=== PATIENT | male | born 1955 | race Caucasian/White ===

== ENCOUNTER → 2021-06-18 | Outpatient (CLI) | payer MEDICARE, OTHER | END | disposition home or self-care (01) | LOC: RAH 10:50 | PROVIDERS: ATTEND Neurological Surgery | DX: M47.817 Spondylosis without myelopathy or radiculopathy, lumbosacral region (principal); M48.07 Spinal stenosis, lumbosacral region; Z90.49 Acquired absence of other specified parts of digestive tract | CPT/HCPCS: 72114 ==

== ENCOUNTER → 2022-11-25 | Outpatient (CLI) | payer MEDICARE, OTHER | END | disposition home or self-care (01) | LOC: RAH 16:13 | PROVIDERS: ATTEND Family Medicine Sports Medicine | DX: M47.26 Other spondylosis with radiculopathy, lumbar region (principal); M54.50 Low back pain, unspecified; M43.16 Spondylolisthesis, lumbar region | CPT/HCPCS: 72148 ==

== ENCOUNTER → 2022-12-30 | Outpatient (CLI) | payer MEDICARE, OTHER ==
[2022-12-30 14:13] LABS: BASOPHILS # (AUTO) 0.07 K/uL (0.00-0.20); BASOPHILS % (AUTO) 1.1 % (0.0-5.0); EOSINOPHILS # (AUTO) 0.18 K/uL (0.00-0.70); EOSINOPHILS % (AUTO) 2.9 % (0.0-8.0); HEMATOCRIT 44.1 % (42-54); IMMATURE GRANULOCYTE ABSOLUTE 0.02 K/uL (0-1); LYMPHOCYTES % (AUTO) 32.5 % (21.0-51.0); MEAN CORPUSCULAR HEMOGLOBIN 32.7 pg (27.0-33.0); MEAN CORPUSCULAR HGB CONC 35.1 g/dL (32.0-36.0); MONOCYTES # (AUTO) 0.5 K/uL (0.1-1.0); MONOCYTES % (AUTO) 8.8 % (3.0-13.0); NEUTROPHILS # (AUTO) 3.3 K/uL (1.8-7.7); NEUTROPHILS % (AUTO) 54.4 % (40.0-77.0); PLATELET COUNT (AUTO) 304 K/uL (130-400); RED BLOOD CELL COUNT(AUTO) 4.74 MIL/uL (4.50-6.20); RED CELL DISTRIBUTION WIDTH 12.9 % (11.0-15.5); WHITE BLOOD COUNT (AUTO) 6.1 K/uL (4.8-10.8)
[2022-12-30 14:20] LABS: CREATININE 1.3 mg/dL (0.5-1.5); POTASSIUM 3.8 mmol/L (3.5-5.1)
== END | disposition home or self-care (01) ==
LOC: LAB 13:44
PROVIDERS: ATTEND Urology
DX: R10.9 Unspecified abdominal pain (principal)
CPT/HCPCS: 36415; 80048; 85025

== ENCOUNTER → 2023-01-07 | Outpatient (CLI) | payer MEDICARE, OTHER ==
[~2023-01-07] MED LIST: IOHEXOL 350 MG/ML 100ML INFUS..BTL IV ONE; IOHEXOL-350 75 ML VIAL IV ONE
== END | disposition home or self-care (01) ==
LOC: RAH 08:20
PROVIDERS: ATTEND Urology
DX: K40.90 Unilateral inguinal hernia, without obstruction or gangrene, not specified as recurrent (principal); M43.17 Spondylolisthesis, lumbosacral region; R10.9 Unspecified abdominal pain; K76.89 Other specified diseases of liver; Z90.49 Acquired absence of other specified parts of digestive tract
CPT/HCPCS: 74178; Q9967

== ENCOUNTER → 2024-09-02 | Outpatient (CLI) | payer MEDICARE, OTHER ==
[~2024-09-02] MED LIST changes: -IOHEXOL-350 75 ML VIAL IV ONE
--- NOTE | 2024-09-15 10:20 | CARDIOLOGY ---
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 A dedicated, limited window, coronary imaging protocol was used, with single breath-hold, retrospective ECG gating, and automated arrhythmia rejection. 100 cc of low osmolar contrast agent: Omnipaque 350 was delivered via a 18-gauge IV catheter in the right antecubital fossa, using a power injector and followed by 60 cc of normal saline bolus as a chaser. Collimated images were reformatted at 0.5 mm intervals, and sent to an offline independent workstation for interpretation, using 3D anatomic reconstructions: Curved multiplanar reconstructions, maximum intensity projections, and multiplanar imaging. No metoprolol was administered prior to scanning due to low baseline heart rate. 0.8 mg SL nitroglycerin was given. CORONARY ARTERY DESCRIPTIONS: The coronary arteries arise in normal position. Left main coronary artery: Normal caliber vessel that bifurcates into the LAD and LCx. No stenosis. Left anterior descending coronary artery: Normal caliber vessel and gives rise to diagonal and septal branches. There is mixed calcified and noncalcified plaque in the proximal LAD with 20-30% stenosis. Left circumflex coronary artery: Normal caliber, nondominant and gives rise to two OM branches. There is mixed calcified and noncalcified plaque in the proximal LCx with 40-50% stenosis. Right coronary artery: Large, dominant vessel giving rise to the PL and PDA branches. There is mixed calcified and noncalcified plaque in the proximal RCA with 50-60% stenosis. CAD-RADs: 3, moderate stenosis. Recommend FFR. Thoracic Aorta: Normal diameter. Rosa Rangel MD Cardiovascular Disease [facility] ROSA RANGEL MD Sep 15, 2024 10:20
== END | disposition home or self-care (01) ==
LOC: RAH 09:12
PROVIDERS: ATTEND Internal Medicine Cardiovascular Disease
DX: I25.10 Atherosclerotic heart disease of native coronary artery without angina pectoris (principal); R06.2 Wheezing
CPT/HCPCS: 75574; Q9967

== ENCOUNTER → 2024-09-15 | Outpatient (CLI) | payer MEDICARE, OTHER | END | disposition home or self-care (01) | LOC: RAH 11:50 | PROVIDERS: ATTEND Internal Medicine Cardiovascular Disease | DX: I25.10 Atherosclerotic heart disease of native coronary artery without angina pectoris (principal); R06.02 Shortness of breath | CPT/HCPCS: 75580 ==

== ENCOUNTER 2025-01-11 14:30 | Emergency (ER) | payer MEDICARE, OTHER ==
[~2025-01-11] VITALS: Ht 180.3 cm; Wt 108.9 kg
--- NOTE | 2025-01-11 14:41 | ERN ---
ED Note History of Present Illness Stated Complaint: ALLERGIC REACTION Chief Complaint: Allergic Reaction Time Seen by MD: 14:32 Dictation: PATIENT IS A 69-YEAR-OLD MALE COMING IN FROM A LOCAL PRIMARY CARE DOCTOR'S OFFICE WITH COMPLAINTS OF HAVING AN URTICARIAL RASH THAT IS ITCHY ONSET WAS YESTERDAY MORNING. HE IS HAVING NO SHORTNESS A BREATH NO ANGIOEDEMA, VOICE IS CLEAR. HE STATES HE AND HIS HAS BEEN THINKING ABOUT THEIR HOME THERE FOOD ETC. AND THERE ARE NO NEW SOAPS DETERGENT CLOSED. PATIENT WAS TRANSPORTED TO [facility] FOR FURTHER EVALUATION AND TREATMENT PATIENT WAS BENADRYL 50 MG AND EPI 0.2. NO ANGIOEDEMA ON TRIAGE, VOICE IS CLEAR Allergies: Coded Allergies: No Known Drug Allergies (Unverified Allergy, Unknown, 01/11/25) Past Medical History RN Note Reviewed/Agreed w/PFSH: Yes Review of System Dictation CONSTITUTIONAL: NEGATIVE EXCEPT FOR HPI HEAD/FACE: NEGATIVE EXCEPT FOR HPI EENT: NEGATIVE EXCEPT FOR HPI RESPIRATORY: NEGATIVE EXCEPT FOR HPI GASTROINTESTINAL/ABDOMINAL: NEGATIVE EXCEPT FOR HPI GENITOURINARY: NEGATIVE EXCEPT FOR HPI MUSCULOSKELETAL: NEGATIVE EXCEPT FOR HPI INTEGUMENTARY: NEGATIVE EXCEPT FOR HPI PRURITIC RASH NEUROLOGICAL/PSYCH: NEGATIVE EXCEPT FOR HPI HEMATOLOGIC/LYMPHATIC: NEGATIVE EXCEPT FOR HPI ALL SYSTEMS NEGATIVE, EXCEPT NOTED ABOVE. 13 POINT REVIEW OF SYSTEMS ASSESSED AND ALL NEGATIVE EXCEPT FOR ABOVE. Initial Vital Sign VS Vital Signs Date Time Temp Pulse Resp B/P (MAP) Pulse Ox O2 Delivery O2 Flow Rate FiO2 01/11/25 14:59 97.5 76 16 132/72 98 Room Air 0 01/11/25 15:43 21 Physical Exam Dictation VITAL SIGNS REVIEWED GENERAL APPEARANCE: ALERT, ORIENTED X 3, MILD ACUTE DISTRESS, WELL DEVELOPED, NOURISHED. HEAD AND FACE: NON-TRAUMATIC. EYES: PERRL, PINK CONJUNCTIVAS, EYELID NO TRAUMA, ANTERIOR CHAMBER WITH ARCUS SENILIS. EARS: PINNAS INTACT AND NO SIGNS OF TRAUMA OR ERYTHEMA EAR CANALS CLEAR AND NO DISCHARGE TM NO ERYTHEMA NOSE: NO DISCHARGE, NO BLEEDING. OROPHARYNX: MOUTH NORMAL, TONGUE PINK, NO ANGIOEDEMA, VOICE IS CLEAR PHARYNX CLEAR,NO ERYTHEMA, TONSILS NO EXUDATES, NO ABSCESSES NOTED, MUCOUS MEMBRANE MOIST NECK: SUPPLE, NON-TENDER, NO THYROMEGALY, NO MASSES, NO JVD, NO BRUITS BREAST:DEFERRED CHEST:NO TENDERNESS, NO CREPITUS, NO PARADOXICAL MOVEMENT, NO RETRACTIONS LUNGS:CLEAR, WELL-VENTILATED, SYMMETRIC, NO RALES, NO WHEEZING, NO RHONCHI, NO STRIDOR, GOOD BREATH SOUNDS BILATERALLY HEART: REGULAR RATE, REGULAR RHYTHM, NO MURMUR, NO GALLOPS VASCULAR: NO PERIPHERAL EDEMA, ABDOMEN: SOFT, POSITIVE BOWEL SOUNDS, NONDISTENDED, NO GUARDING, NONTENDER, NO REBOUND, NO MASSES NO HEPATOMEGALY, NO SPLENOMEGALY, NO GONZALES'S SIGN, NO HERNIAS. RECTAL: DEFERRED GENITAL: DEFERRED NEUROLOGICAL: NORMAL SPEECH, MOTOR FUNCTION INTACT, SENSORY FUNCTION INTACT MUSCULOSKELETAL: NECK NONTENDER, FULL RANGE OF MOTION, BACK NONTENDER, FULL RANGE OF MOTION, EXTREMITIES: NONTENDER, FULL RANGE OF MOTION SKIN: COLOR PINK, URTICARIAL RASH NOTED TO CHEST BACK ARMS AND LEGS. LYMPHATIC: DEFERRED Results (Laboratory/Radiology) Labs Reviewed?: Yes ED Course ED Course Orders Procedure Category Date Status Time Methylprednisolone PHA 01/11/25 Complete Succ 125mg (Solu-Medr 15:00 Famotidine 20mg Vial PHA 01/11/25 Complete (Pepcid 20mg Vial) 15:00 0.9%Nacl 1000ml (Ns PHA 01/11/25 Complete 1000ml) 15:00 Diphenhydramine Hcl PHA 01/11/25 Complete (Benadryl Inj) 16:00 Current Medications Medications (Trade) Dose Ordered Sig/Ruel Route PRN Reason Start Time Stop Time Status Last Admin Dose Admin Diphenhydramine HCl (BENAdryl INJ) 25 mg ONCE ONCE IV 01/11/25 16:00 01/11/25 16:01 DC 01/11/25 16:01 Famotidine (Pepcid 20mg Vial) 20 mg ONCE ONCE IV 01/11/25 15:00 01/11/25 15:05 DC 01/11/25 15:37 Methylprednisolone Sodium Succinate (Solu-medROL 125MG) 125 mg ONCE ONCE IVP 01/11/25 15:00 01/11/25 15:05 DC 01/11/25 15:37 Sodium Chloride 1,000 ml @ 0 mls/hr ONCE ONCE IV 01/11/25 15:00 01/11/25 15:05 DC 01/11/25 15:38 Vital Signs Date Time Temp Pulse Resp B/P (MAP) Pulse Ox O2 Delivery O2 Flow Rate FiO2 01/11/25 15:43 98.6 70 18 132/72 98 Room Air* 0 21 01/11/25 14:59 97.5 76 16 132/72 98 Room Air 0 1550/SPOKE TO PATIENT IN HIS AT LENGTH REGARDING HIS ALLERGIC REACTION. NOW STATES THERE SON AND CAME INTO TOWN WITH A HAM. SHE SAID SHE USE THE HAND AND CUT IT UP AND PUT IT IN SOUP AND IT WAS THE DAY AFTERWARDS WHEN THE ALLERGIC REACTION STARTED.1615/ 1615/RASHES MARKEDLY FADED BILATERAL BREATH SOUNDS ARE CLEAR NO ANGIOEDEMA. PATIENT IN HIS WERE STRONGLY ADVISED TO THROUGHOUT THE SOUP THAT HAD THE LEFTOVER HIM IN IT MY BELIEVE HIS THIS IS A ALLERGIC REACTION TO [employer] Medical Decision Making MDM MEDICAL DISCHARGE MAKING BASED ON EMPIRIC TREATMENT FOR AN ACUTE ALLERGIC REACTION. PATIENT RECEIVED IV FLUIDS/SOLU-MEDROL AND DIPHENHYDRAMINE. RASHES MARKEDLY FADED, THERE WAS NO ANGIOEDEMA BILATERAL BREATH SOUNDS CLEAR TO AUSCULTATION PATIENT ADVISED TO THROW OUT THE SOUP WITH THE HIM IN HIS [place]OVER FROM [place] HE WILL PRESCRIBED BENADRYL AND PREDNISONE TOLD SEE HIS PRIMARY CARE DOCTOR TOMORROW FOR ALLERGIC SPECIALIST DX & DISP Disposition: Discharge Departure Impression: Primary Impression: Acute allergic reaction Additional Impression: Urticaria Condition: Stable Scripts Diphenhydramine HCl (Benadryl) 50 Mg Cap 50 MG PO Q6H for itching/rash, #20 CAP 0 Refills Prov: MK JONES 01/11/25 Prednisone (Prednisone) 20 Mg Tablet 1 TAB PO AD for 6 Days, #14 TAB 0 Refills TAKE 1 TAB BY MOUTH THREE TIMES PER DAY X3 DAYS, THEN TAKE 1 TAB BY MOUTH TWICE A DAY X2 DAYS, THEN TAKE 1 TAB BY MOUTH ONCE A DAY X1 DAY. Prov: MK JONES 01/11/25 Additional Instructions: FOLLOW-UP WITH PRIMARY CARE PROVIDER IN 1 TO 2 DAYS. TAKE MEDICATIONS DIRECTED HERE IN THE EMERGENCY ROOM. OKAY TO CONTINUE HOME MEDICATIONS UNLESS OTHERWISE DISCUSSED DURING YOUR VISIT IN THE EMERGENCY ROOM TODAY. RETURN TO YOUR NEAREST EMERGENCY ROOM IF SYMPTOMS WORSEN OR IF THERE IS NO IMPROVEMENT. CALL 911 IF YOU NEED IMMEDIATE ASSISTANCE. TAKE TYLENOL OR MOTRIN [id number] NEEDED AND IF NO CONTRAINDICATIONS ARE PRESENT. INCREASE ORAL HYDRATION. A WOUND CULTURE OR URINE CULTURE WAS ORDERED HERE IN THE EMERGENCY ROOM DEPARTMENT PLEASE FOLLOW-UP WITH PRIMARY CARE PROVIDER AND ADVISE THEM TO GET REPEAT PORTS FROM OUR FACILITY. IF YOU HAD ANY ARIANA WRAP/SPLINTS THAT WERE APPLIED HERE, PLEASE DO NOT REMOVE THEM UNTIL YOU SEE YOUR PRIMARY CARE OR SPECIALTY. TAKE BENADRYL EVERY 6 HOURS FOR FOUR MORE DOSES. TAKE PREDNISONE DIRECTED WITH FOOD UNTIL GONE. DISCARD THE SOUP WITH THE LEFTOVER [place] FROM [place] SEE YOUR PRIMARY CARE DOCTOR FOR FOLLOW UP TOMORROW OR THE NEXT DAY FOR A REGULATORY ASSISTANT REFERRAL Referrals: DEMETRIS SPRING MD (PCP) Time of Disposition: 16:15 I have reviewed the case, and I agree with, Diagnosis and Plan MK JONES LEAD BURNER APPRENTICE Jan 11, 2025 14:41
[2025-01-11] MEDS: FAMOTIDINE 20MG VIAL IV ONE (15:37)
[2025-01-11] MEDS: 0.9%NACL 1000ML 1,000 ML IV ONE (15:38)
[2025-01-11] MEDS ORDERED: PRED20TA3 PO (16:15)
[2025-01-11] MEDS ORDERED: DIPH50CA38 PO (16:15)
[2025-01-11 16:45] VITALS: BP 137/73; PULSE 71; RESP 17; TEMP 98.6; O2SAT 99
--- NOTE | 2025-01-11 17:00 | NUR ---
URTICARIA SUBSIDING.PATIENT IS LESS ITCHY.VITALS SIGN CHARTED. HE DOES NOT HAVE ANY SIGNS OF BREATHING DIFFICULTIES,SYMMETRICAL UNLAPORED CHEST MOVEMENTS, NO WHEEZING. PATIENT RECEIVED HIS DISCHARGE PAPERWORK.MEDICATIONS SENT TO [facility]. HE WAS TAKEN TO THE ENTRANCE IN A WHEELCHAIR BY PEDIATRIC SPEECH THERAPIST, WHERE HE TRANSFERERD INTO HIS VEHICLE DRIVEN BY HIS .
== END 2025-01-11 17:05 | disposition home or self-care (01) ==
LOC: EDH 14:30
DX: L50.0 Allergic urticaria (principal)
CPT/HCPCS: 99284; 96374; 96375; 96361; J2919; J1200; J1308; J7030